=== PATIENT | female | born 1955 | race Hispanic/Latino ===

== ENCOUNTER 2021-09-08 05:14 | Emergency (ER) | payer MEDICARE ==
[2021-09-08] MEDS ORDERED: IPRATROPIUM/ALBUTEROL SULFATE 3 ML AMPUL.NEB IH ONE (06:34)
--- NOTE | 2021-09-08 06:40 | Emergency Department Report ---
ED Shortness of Breath HPI - General Chief Complaint: Dyspnea/Respdistress Stated Complaint: DORIAN Time Seen by Provider: 09/08/21 06:27 Source: patient, EMS Mode of arrival: Stretcher Limitations: No Limitations - History of Present Illness Initial Comments: 66-year-old morbidly obese female with a history of asthma, COPD and smoking who presented with shortness of breath and cough and wheezing that been going on for the last 2 days progressively getting worse. Patient has history of pleural effusion with pleurocentesis in the past. She reported that she is afraid some fluid may need to be drained from her lungs. Patient denies any fever or chil ls. She however continues to smoke about a pack a day. No other modifying or associated factors reported. - Related Data Previous Rx's Medication Instructions Recorded Last Taken Type levoFLOXacin [Levofloxacin] 500 mg PO DAILY 7 Days #7 tab NS 09/08/21 Unknown Rx predniSONE [Deltasone] 40 mg PO QDAY 5 Days #10 tab NS 09/08/21 Unknown Rx Allergies Allergy/AdvReac Type Severity Reaction Status Date / Time ketorolac [From Toradol] Allergy Anaphylaxis Verified 09/08/21 05:43 morphine Allergy Hives Verified 09/08/21 05:43 ED Review of Systems ROS: Stated complaint: DORIAN Other details as noted in HPI Comment: All other systems reviewed and negative Respiratory: cough, shortness of breath, SOB at rest, wheezing Cardiovascular: denies: chest pain, palpitations, syncope ED Past Medical Hx - Past Medical History Previous Medical History?: Yes Hx Asthma: Yes Hx COPD: Yes - Social History Smoking Status: Current Every Day Smoker Substance Use Type: None - Medications Home Medications: Home Medications Medication Instructions Recorded Confirmed Last Taken Type levoFLOXacin [Levofloxacin] 500 mg PO DAILY 7 Days #7 tab NS 09/08/21 Unknown Rx predniSONE [Deltasone] 40 mg PO QDAY 5 Days #10 tab NS 09/08/21 Unknown Rx ED Physical Exam - General Limitations: No Limitations General appearance: alert, in distress (Due to shortness of breath), obese - Head Head exam: Present: normal inspection - Eye Eye exam: Present: normal appearance - ENT ENT exam: Present: normal exam, normal orophraynx, TM's normal bilaterally - Neck Neck exam: Present: normal inspection - Respiratory Respiratory exam: Present: wheezes (Expiratory wheezing bilaterally and diffuse) - Cardiovascular Cardiovascular Exam: Present: regular rate, normal rhythm, normal heart sounds - GI/Abdominal GI/Abdominal exam: Present: soft, normal bowel sounds. Absent: tenderness - Extremities Exam Extremities exam: Present: normal inspection - Back Exam Back exam: Absent: tenderness - Neurological Exam Neurological exam: Present: alert, oriented X3 - Psychiatric Psychiatric exam: Present: normal affect, normal mood - Skin Skin exam: Present: warm, normal color ED Course Vital Signs 09/08/21 09/08/21 09/08/21 05:44 07:36 07:40 Temperature 97.8 F Pulse Rate 110 H 98 H Respiratory 24 24 24 Rate Blood Pressure 142/78 131/81 [Left] O2 Sat by Pulse 100 100 100 Oximetry - Reevaluation(s) Reevaluation #1: 09/08/21 06:41 Here with shortness of breath with productive cough and wheezing for the last 2 days progressively getting worse--initial presenting oxygen was low 80s and patient was started on high flow nonrebreather with improvement to 93 to 94% saturation--this is likely COPD exacerbation so we will go ahead and give DuoNeb and check CT scan of the chest considering that this patient has history of pleurisy with pleurocentesis for better imaging--also ordered CBC, CMP, TSH for any infectious process or electrolyte abnormality. 09/08/21 06:44 We also gave Levaquin 500 IV piggyback Reevaluation #2: 09/08/21 11:14 Patient reported feeling much better on my reevaluation and ready to go home--she plans to continue using oxygen at home I am also going to had Levaquin and prednisone short because to continue to help her symptoms. She will be scheduled for close follow-up with her primary doctor and warning to return to emergency room if symptoms worsen. ED Medical Decision Making - Lab Data Result diagrams: 09/08/21 06:46 09/08/21 06:46 Critical care attestation.: If time is entered above; I have spent that time in minutes in the direct care of this critically ill patient, excluding procedure time. ED Disposition Clinical Impression: Shortness of breath, COPD with exacerbation Disposition: 01 HOME / SELF CARE / HOMELESS Is pt being admited?: No Does the pt Need Aspirin: No Condition: Stable Instructions: Chronic Obstructive Pulmonary Disease Exacerbation, [id number], Shortness of Breath, Adult, [id number], Chronic Obstructive Pulmonary Disease (ED) Additional Instructions: Cut back on your smoking to help your symptoms Take and complete your antibiotics and steroid as prescribed to help your symptoms Call and schedule follow-up with your primary doctor in the next 3 to 5 days for progress Please do not hesitate to call or return to emergency if your symptoms worsen Prescriptions: predniSONE [Deltasone] 40 mg PO QDAY 5 Days #10 tab NS levoFLOXacin [Levofloxacin] 500 mg PO DAILY 7 Days #7 tab NS Referrals: PRIMARY CARE, [Primary Care Provider] - 3-5 Days Time of Disposition: 11:18
[2021-09-08 07:15] LABS: Basophils # (Auto) 0.1 K/mm3 (0.0-0.1); Basophils % (Auto) 1.4 % (0.0-1.8); Eosinophils # (Auto) 0.9 K/mm3 (0.0-0.4); Eosinophils % (Auto) 8.6 % (0.0-4.3); Hematocrit 47.7 % (30.3-42.9); Hemoglobin 15.4 gm/dl (10.1-14.3); Lymphocytes # (Auto) 2.1 K/mm3 (1.2-5.4); Lymphocytes % (Auto) 20.6 % (13.4-35.0); Mean Corpuscular HGB Conc 32 % (30-34); Mean Corpuscular Volume 92 fl (79-97); Monocytes # (Auto) 0.6 K/mm3 (0.0-0.8); Monocytes % (Auto) 6.2 % (0.0-7.3); Platelet Count 370 K/mm3 (140-440); Red Blood Count 5.19 M/mm3 (3.65-5.03); Red Cell Distribution Width 13.7 % (13.2-15.2)
[2021-09-08 07:28] LABS: Alanine Aminotransferase 11 units/L (7-56); Albumin 4.4 g/dL (3.9-5); Blood Urea Nitrogen 13 mg/dL (7-17); Calcium 9.8 mg/dL (8.4-10.2); Hemolysis Index 9
[2021-09-08 07:33] LABS: BUN/Creatinine Ratio 26
--- NOTE | 2021-09-08 07:46 | Cat Scan Report ---
CT CHEST WITHOUT CONTRAST INDICATION / CLINICAL INFORMATION: sob with emphysema and h/o pleurocentesis. TECHNIQUE: Axial CT images were obtained through the chest without contrast. All CT scans at this [facility] ation are performed using CT dose reduction for ALARA by means of automated exposure control. COMPARISON: None available. FINDINGS: CHEST LOWER NECK: Soft tissues and musculature of the lower neck demonstrate no significant abnormality. Th e thyroid demonstrates no significant abnormality. THORACIC AORTA: No significant abnormality. PULMONARY ARTERY:No significant abnormality. HEART: No significant abnormality. CORONARY ARTERY CALCIFICATION: Present -- Severe. MEDIASTINUM / JACK: Small hiatal hernia within the lower chest. ESOPHAGUS: No significant abnormality. LYMPH NODES: No adenopathy demonstrated within the axilla, jack, or mediastinum. LUNGS: Scattered foci of groundglass attenuation. Some regions of minimally thickened septa. No focal consolidation. Calcified granuloma left lower lobe right lower lobe. PLEURA: No pleural effusion. No pneumothorax. THORACIC SOFT TISSUES: No significant abnormality of the chest wall or upper thoracic musculature. OSSEOUS STRUCTURES: No significant abnormality of included osseous structures. UPPER ABDOMEN: Prior gastric surgery. Upper pole cyst left kidney. Possible fat necrosis midline uppe r omentum. This finding partially imaged. Colonic diverticulosis. ADDITIONAL CHEST FINDINGS: None. IMPRESSION: 1. Minimal scattered peripheral foci of groundglass attenuation within the lungs. Reflect infectious or inflammatory process. 2. Minimal emphysema. 3. Other findings as detailed. Signer Name: Filemon Martinez II, MD Signed: 09/08/2021 7:43 AM Workstation Name: [id number]
[2021-09-08 07:47] LABS: INR 0.9 (0.87-1.13)
[2021-09-08 07:48] LABS: Partial Thromboplastin Time 29.6 Sec. (24.2-36.6)
[2021-09-08 11:20] VITALS: BP 138/75
== END 2021-09-08 11:29 | disposition home or self-care (01) ==
LOC: ED 05:14
DX: J44.1 Chronic obstructive pulmonary disease with (acute) exacerbation (principal); F17.200 Nicotine dependence, unspecified, uncomplicated; Z88.5 Allergy status to narcotic agent; R79.1 Abnormal coagulation profile; Z88.8 Allergy status to other drugs, medicaments and biological substances; Z79.899 Other long term (current) drug therapy
CPT/HCPCS: 36415; 71250; 80053; 84443; 85025; 85610; 85730; 94640; 96365; 99284; J1956

== ENCOUNTER 2021-12-04 07:39 | Inpatient (IN) | payer MEDICARE ==
[2021-12-04] MEDS ORDERED: methylPREDNISolone Sod Succinate 125 MG/2 ML INJ IV ONE (07:52)
[2021-12-04] MEDS ORDERED: ALBUTEROL 2.5 MG/3 ML NEBU IH ONE (07:52)
--- NOTE | 2021-12-04 08:03 | Emergency Department Report ---
HPI - General Chief Complaint: Dyspnea/Respdistress Time Seen by Provider: 12/04/21 07:51 - HPI HPI: 66-year-old morbidly obese female with history of chronic tobacco abuse, currently documented per her last visit to the emergency department on September 2021 as being on 3 L of oxygen at home, brought in by EMS for respiratory distress. Patient reports several days of intermittent dry and phlegm productive cough as well as chest tightness wheezing or shortness of breath. EMS personnel report that she received 1 albuterol treatment prior to arrival. Patient denies any chest pain, pain or swelling to her legs, dizziness, fevers or chills. Pain 0 out of 10. ED Past Medical Hx - Past Medical History Previous Medical History?: Yes Hx Asthma: Yes Hx COPD: Yes - Social History Smoking Status: Current Every Day Smoker Substance Use Type: None - Medications Home Medications: Home Medications Medication Instructions Recorded Confirmed Last Taken Type levoFLOXacin [Levofloxacin] 500 mg PO DAILY 7 Days #7 tab NS 09/08/21 Unknown Rx predniSONE [Deltasone] 40 mg PO QDAY 5 Days #10 tab NS 09/08/21 Unknown Rx ED Review of Systems ROS: Stated complaint: DORIAN Other details as noted in HPI Comment: All other systems reviewed and negative Respiratory: cough, shortness of breath, SOB with exertion, wheezing Cardiovascular: dyspnea on exertion, orthopnea. denies: chest pain, palpitations, edema, syncope, paroxysmal nocturnal dyspnea, other Endocrine: no symptoms reported Physical Exam - Physical Exam Vital Signs: Vital Signs 12/04/21 07:46 Temperature 98.1 F Pulse Rate 130 H Respiratory 26 H Rate Blood Pressure 129/83 [Left] O2 Sat by Pulse 98 Oximetry General: Gen: Obese felt female, visibly dyspneic, unable to speak in sentences, moderate respiratory distress, audibly wheezing, no drooling no stridor, no accessory muscle usage HEENT: Normocephalic atraumatic pupils equally round and reactive to light extraocular muscles intact sclera anicteric Neck: Full range of motion, no midline spinal tenderness palpation, no JVD, no carotid bruits, no nuchal rigidity CVS: S1-S2 regular rate and rhythm with no gallops rubs or murmurs, chest wall nontender Pulmonary: Diffuse end expiratory wheezes in all lung mak Abdomen: Soft nondistended nontender no guarding or rebound tenderness, no palpable deformities or step-offs, normal active bowel sounds, no hepatosplenomegaly, no pulsatile masses : Deferred Extremities: No cyanosis no clubbing no edema, intact distal peripheral pulses, Integumentary: Skin normal, no petechia no purpura no abscess no lacerations no evidence of trauma no evidence of infection Neuro: Patient is awake alert and oriented to person place time situation, mentating well, cranial nerves II through XII intact, no focal neurodeficits, sensation grossly tact, unable to test gait at this time Psych: Calm cooperative, mood affect normal ED Course Vital Signs 12/04/21 07:46 Temperature 98.1 F Pulse Rate 130 H Respiratory 26 H Rate Blood Pressure 129/83 [Left] O2 Sat by Pulse 98 Oximetry ED Medical Decision Making - Lab Data Result diagrams: 12/04/21 08:09 12/04/21 08:09 - EKG Data -: EKG Interpreted by Or EKG shows normal: sinus rhythm Rate: tachycardia - EKG Data Interpretation: no acute changes - Radiology Data Radiology results: report reviewed - Medical Decision Making 66-year-old female presents for evaluation of COPD exacerbation, hypoxemia, and acute on chronic hypoxic respiratory failure. Labs and diagnostic imaging results reviewed. Pt placed on bipap secondary to demonstrating little to no improvement while being placed on 2 L of supplemental oxygen via nasal cannula. Case reviewed with , hospitalist. Per her verbal report, patient will be admitted under Dr. Dumont. Critical care attestation.: If time is entered above; I have spent that time in minutes in the direct care of this critically ill patient, excluding procedure time. ED Disposition Clinical Impression: Respiratory failure with hypoxia Disposition: ADMITTED INPATIENT Is pt being admited?: Yes Does the pt Need Aspirin: No Condition: Stable
--- NOTE | 2021-12-04 08:12 | XRay Report ---
CHEST 1 VIEW 12/04/2021 8:00 AM INDICATION / CLINICAL INFORMATION: copd, cough, hypoxia. COMPARISON: CT chest dated 09/08/2021 FINDINGS: SUPPORT DEVICES: None. HEART / MEDIASTINUM: No significant abnormality. LUNGS / PLEURA: No significant pulmonary or pleural abnormality. No pneumothorax. ADDITIONAL FINDINGS: No significant additional findings. IMPRESSION: 1. No acute findings. Signer Name: Avery Machado Jr, MD Signed: 12/04/2021 8:07 AM Workstation Name: [id number]
[2021-12-04 08:47] LABS: ABG HCO3 28.2 mmol/L (20.0-26.0); ABG Methemoglobin 0.5 % (0.0-1.5); ABG Oxygen Saturation 95.8 % (95.0-99.0); ABG PCO2 67.2 mm Hg; ABG PH 7.241 pH Units (7.350-7.450); ABG PO2 90.2 mm Hg (80.0-90.0)
[2021-12-04 09:21] LABS: Basophils # (Auto) 0.2 K/mm3 (0.0-0.1); Basophils % (Auto) 1.2 % (0.0-1.8); Eosinophils # (Auto) 0.3 K/mm3 (0.0-0.4); Hematocrit 47.4 % (30.3-42.9); Hemoglobin 15.1 gm/dl (10.1-14.3); Lymphocytes # (Auto) 1.2 K/mm3 (1.2-5.4); Lymphocytes % (Auto) 8.5 % (13.4-35.0); Mean Corpuscular HGB Conc 32 % (30-34); Mean Corpuscular Volume 94 fl (79-97); Monocytes # (Auto) 0.8 K/mm3 (0.0-0.8); Monocytes % (Auto) 5.2 % (0.0-7.3); Platelet Count 345 K/mm3 (140-440); Red Blood Count 5.07 M/mm3 (3.65-5.03); Red Cell Distribution Width 13.5 % (13.2-15.2)
[2021-12-04 09:43] LABS: Blood Urea Nitrogen 13 mg/dL (7-17); Calcium 9.3 mg/dL (8.4-10.2); Hemolysis Index 2
[2021-12-04 10:17] LABS: BUN/Creatinine Ratio 26
--- NOTE | 2021-12-04 10:50 | History and Physical Report ---
History of Present Illness Chief complaint: I cannot breathe History of present illness: 66 YO Female with COPD, Mild Intermittent Asthma, Nicotine Dependence, Obesity Hypoventilation Syndrome, Chronic Respiratory Failure on Home Oxygen at 3L [place] presents to ED for evaluation. Patient states she has experienced shortness of breath over the past 3 days. Patient acknowledges increased productive cough with yellowish sputum. Patient acknowledges increased bronchodilator and nebulizer therapy use without relief of the aforementioned symptoms which is a failure of outpatient therapy. EMS was notified and upon arrival the patient was found to be in distress and subsequently transported to [facility] for further care and evaluation of the aforementioned symptoms. The patient was seen and evaluated in the emergency department. All lab and imaging studies reviewed. Patient found to have a pulse oximetry of 84% on supplemental oxygen which is consistent with acute hypoxemic respiratory failure. Patient was also found to be retracting, unable to speak in complete sentences, and using accessory muscles to breathe. Patient placed on noninvasive positive pressure ventilation in the emergency department with mild improvement in symptoms. Patient uses head gestures to deny fever, chills, chest pain, palpitation, skin rash, recent contact, unilateral leg swelling, calf pain, prolonged travel, individual/family history of DVT/PE/bleeding/blood clotting disorders, or known exposure to COVID- 19. No prior admission for review. All medication listed at time of admission has been reconciled. Advanced care planning conducted in ED. Past History Past Medical History: COPD, other (See HPI) Past Surgical History: No surgical history, Other (Reviewed) Social history: single, smoking. denies: alcohol abuse, prescription drug abuse Family history: hypertension Medications and Allergies Allergies Allergy/AdvReac Type Severity Reaction Status Date / Time ketorolac [From Toradol] Allergy Anaphylaxis Verified 12/04/21 07:50 morphine Allergy Hives Verified 12/04/21 07:50 Home Medications Medication Instructions Recorded Confirmed Last Taken Type levoFLOXacin [Levofloxacin] 500 mg PO DAILY 7 Days #7 tab NS 09/08/21 Unknown Rx predniSONE [Deltasone] 40 mg PO QDAY 5 Days #10 tab NS 09/08/21 Unknown Rx Active Meds: Active Medications Magnesium Sulfate 1 gm/ Sodium (Chloride) 52 mls @ 52 mls/hr IV ONCE ONE Stop: 12/04/21 11:59 Review of Systems Constitutional: no weight loss, no weight gain, no fever, no chills Ears, nose, mouth and throat: no ear pain, no ear discharge, no tinnitis, no decreased hearing Breasts: no change in shape, no swelling, no mass Cardiovascular: no orthopnea, no rapid/irregular heart beat, no syncope Respiratory: cough, cough with sputum, shortness of breath, congestion, wheezing Gastrointestinal: no abdominal pain, no nausea, no vomiting, no diarrhea, no constipation, no change in bowel habits Genitourinary Female: no pelvic pain, no flank pain, no dysuria, no urinary frequency, no urgency, no stress incontinence Rectal: no pain, no incontinence, no bleeding Musculoskeletal: no neck stiffness, no neck pain, no arm numbness/tingling, no low back pain, no shooting leg pain Integumentary: no rash, no pruritis, no redness, no sores, no wounds, no jaundice, no boils Neurological: no head injury, no paralysis, no parathesias, no tingling, no syncope Psychiatric: no anxiety, no change in sleep habits, no hypersomnia, no change in libido, no suicidal ideation Endocrine: no cold intolerance, no polyphagia, no flushing Hematologic/Lymphatic: no easy bruising Allergic/Immunologic: no allergic rhinitis, no wheezing Exam - Constitutional Vitals: Temp Pulse Resp BP Pulse Ox 98.1 F 114 H 18 132/96 98 12/04/21 07:46 12/04/21 09:20 12/04/21 09:20 12/04/21 09:20 12/04/21 09:20 General appearance: Present: mild distress, obese - Respiratory Respiratory effort: labored, accessory muscle use, stridor Respiratory: bilateral: diminished, rhonchi - Cardiovascular Rhythm: other (Tachycardia) - Extremities Extremities: pulses symmetrical, No edema Peripheral Pulses: within normal limits - Abdominal General gastrointestinal: Present: soft, non-tender, non-distended, normal bowel sounds Female genitourinary: Present: normal - Integumentary Integumentary: Present: clear, dry - Musculoskeletal Musculoskeletal: generalized weakness - Psychiatric Psychiatric: cooperative - Neurologic Neurologic: CNII-XII intact Results - Labs CBC & Chem 7: 12/04/21 08:09 12/04/21 08:09 Labs: Abnormal lab results 12/04/21 12/04/21 12/04/21 Range/Units 08:09 08:09 08:20 WBC 14.8 H (4.5-11.0) K/mm3 RBC 5.07 H (3.65-5.03) M/mm3 Hgb 15.1 H (10.1-14.3) gm/dl Hct 47.4 H (30.3-42.9) % Lymph % (Auto) 8.5 L (13.4-35.0) % Baso # (Auto) 0.2 H (0.0-0.1) K/mm3 Seg Neutrophils % 83.1 H (40.0-70.0) % Seg Neutrophils # 12.3 H (1.8-7.7) K/mm3 ABG pH 7.241 L (7.350-7.450) pH Units ABG pO2 90.2 H (80.0-90.0) mm Hg ABG HCO3 28.2 H (20.0-26.0) mmol/L Oxyhemoglobin 94.1 L (95.0-99.0) % Carbon Dioxide 31 H (22-30) mmol/L Creatinine 0.5 L (0.6-1.2) mg/dL Glucose 217 H (65-100) mg/dL Assessment and Plan - Patient Problems (1) Acute hypoxemic respiratory failure Current Visit: Yes Status: Acute Plan to address problem: Chest x-ray, supplemental oxygen, pulse oximetry, nebulizer therapy, pulmonary toilet, IV steroid therapy, noninvasive positive pressure ventilation as clinically indicated. (2) COPD exacerbation Current Visit: Yes Status: Acute Plan to address problem: Chest x-ray, supplemental oxygen, pulse oximetry, IV steroid therapy, supportive care. (3) Obesity hypoventilation syndrome Current Visit: Yes Status: Acute Plan to address problem: Balanced diet, increase physical activity discharge, outpatient pulmonary follow-up for sleep study, (4) Nicotine dependence Current Visit: Yes Status: Acute Qualifiers: Nicotine product type: cigarettes Substance use status: in withdrawal Qualified Code(s): F17.213 - Nicotine dependence, cigarettes, with withdrawal Plan to address problem: Smoking cessation counseling, supportive care, behavior change counseling, +15 minutes. (5) DVT prophylaxis Current Visit: Yes Status: Acute Plan to address problem: SCD to bilateral lower extremities while in bed (6) Advance care planning Current Visit: Yes Status: Acute Plan to address problem: Disease education data, care plan discussed, diagnoses discussed, prognosis discussed, patient is full code, patient knowledges understanding and agreement care plan, +30 minutes. (7) Preventative health care Current Visit: Yes Status: Acute Plan to address problem: Patient counseled regarding weight reduction, balanced diet, increase physical activity discharge, outpatient pulmonary follow-up procedure, outpatient bariatric evaluation, outpatient follow-up with primary care physician for all age and risk factor appropriate screening test. +30 minutes.
[2021-12-04] MEDS ORDERED: oxyCODONE /ACETAMINOPHEN 5-325MG TAB PO PRN (10:51)
[2021-12-04] MEDS ORDERED: HYDROmorphone 0.5 MG/0.5 ML INJ IV PRN (10:51)
[2021-12-04] MEDS ORDERED: ONDANSETRON 4 MG/2 ML INJ IV PRN (10:51)
[2021-12-04] MEDS ORDERED: ACETAMINOPHEN 325 MG TAB PO PRN (10:51)
[2021-12-04] MEDS ORDERED: MAGNESIUM SULFATE 1 GM in SODIUM CHLORIDE 0.9% 50 ML IV ONE (11:00)
[2021-12-04] MEDS: methylPREDNISolone Sod Succinate 40 MG/1 ML INJ IV SCH ×2 (16:00→21:16)
[2021-12-04] MEDS: FAMOTIDINE 10 MG TAB PO SCH (21:16)
[2021-12-05] MEDS ORDERED: MAGNESIUM HYDROXIDE (MOM) ORAL LIQD UDC PO PRN ×2 (01:40→01:49)
[2021-12-05] MEDS: methylPREDNISolone Sod Succinate 40 MG/1 ML INJ IV SCH ×3 (05:30→22:42)
[2021-12-05 07:14] LABS: Blood Urea Nitrogen 13 mg/dL (7-17); Calcium 9.2 mg/dL (8.4-10.2); Hemolysis Index 2
[2021-12-05 07:17] LABS: BUN/Creatinine Ratio 33
[2021-12-05] MEDS: FAMOTIDINE 10 MG TAB PO SCH ×2 (09:43→22:42)
--- NOTE | 2021-12-05 10:20 | Progress Note ---
Assessment and Plan Assessment and plan: 66 YO Female with COPD, Mild Intermittent Asthma, Nicotine Dependence, Obesity Hypoventilation Syndrome, Chronic Respiratory Failure on Home Oxygen at 3L NC presents to ED for evaluation of shortness of breath over the past 3 days. Patient acknowledged increased productive cough with yellowish sputum. Patient acknowledges increased bronchodilator and nebulizer therapy use without relief of the aforementioned symptoms which is a failure of outpatient therapy. EMS was notified and upon arrival the patient was found to be in distress and subsequently transported to [facility] for further care and evaluation of the aforementioned symptoms. The patient was seen and evaluated in the emergency department. All lab and imaging studies reviewed. Patient found to have a pulse oximetry of 84% on supplemental oxygen which is consistent with acute hypoxemic respiratory failure. Acute on chronic hypoxic respiratory failure. Patient with home oxygen of 4 L Acute COPD exacerbation Obesity hypoventilation syndrome Nicotine dependence 12/05/2021. Patient required 15 L Venturi mask last night and then later transitioned to BiPAP overnight. Today, patient with 10 L O2. Continue O2 supplementation and wean as tolerated. BiPAP as clinically indicated. Continue IV steroids of Solu-Medrol 40 mg every 8 hours, albuterol nebulizer treatments. History Interval history: No new issues overnight Hospitalist Physical - Constitutional Vitals: Temp Pulse Resp BP Pulse Ox 97.6 F 101 H 22 140/66 95 12/05/21 01:41 12/05/21 01:41 12/05/21 01:41 12/05/21 01:41 12/05/21 08:21 General appearance: Present: mild distress, obese - EENT Eyes: Present: PERRL, EOM intact ENT: hearing intact, clear oral mucosa, dentition normal - Neck Neck: Present: supple, normal ROM - Respiratory Respiratory effort: normal Respiratory: bilateral: CTA - Cardiovascular Rhythm: regular Heart Sounds: Present: S1 & S2. Absent: gallop, rub - Extremities Extremities: no ischemia, No edema, Full ROM - Abdominal General gastrointestinal: soft, non-tender, non-distended, normal bowel sounds - Integumentary Integumentary: Present: clear, warm, dry - Neurologic Neurologic: CNII-XII intact, moves all extremities Results - Labs CBC & Chem 7: 12/04/21 08:09 12/05/21 06:05 Labs: Laboratory Last Values WBC 14.8 K/mm3 (4.5-11.0) H 12/04/21 08:09 RBC 5.07 M/mm3 (3.65-5.03) H 12/04/21 08:09 Hgb 15.1 gm/dl (10.1-14.3) H 12/04/21 08:09 Hct 47.4 % (30.3-42.9) H 12/04/21 08:09 MCV 94 fl (79-97) 12/04/21 08:09 MCH 30 pg (28-32) 12/04/21 08:09 MCHC 32 % (30-34) 12/04/21 08:09 RDW 13.5 % (13.2-15.2) 12/04/21 08:09 Plt Count 345 K/mm3 (140-440) 12/04/21 08:09 Lymph % (Auto) 8.5 % (13.4-35.0) L 12/04/21 08:09 [place] % (Auto) 5.2 % (0.0-7.3) 12/04/21 08:09 Eos % (Auto) 2.0 % (0.0-4.3) 12/04/21 08:09 Baso % (Auto) 1.2 % (0.0-1.8) 12/04/21 08:09 Lymph # (Auto) 1.2 K/mm3 (1.2-5.4) 12/04/21 08:09 [place] # (Auto) 0.8 K/mm3 (0.0-0.8) 12/04/21 08:09 Eos # (Auto) 0.3 K/mm3 (0.0-0.4) 12/04/21 08:09 Baso # (Auto) 0.2 K/mm3 (0.0-0.1) H 12/04/21 08:09 Seg Neutrophils % 83.1 % (40.0-70.0) H 12/04/21 08:09 Seg Neutrophils # 12.3 K/mm3 (1.8-7.7) H 12/04/21 08:09 ABG pH 7.241 pH Units (7.350-7.450) L 12/04/21 08:20 ABG pCO2 67.2 mm Hg 12/04/21 08:20 ABG pO2 90.2 mm Hg (80.0-90.0) H 12/04/21 08:20 ABG HCO3 28.2 mmol/L (20.0-26.0) H 12/04/21 08:20 ABG O2 Saturation 95.8 % (95.0-99.0) 12/04/21 08:20 ABG O2 Content 20.1 (0.0-44) 12/04/21 08:20 ABG Base Excess -1.0 mmol/L (-2.0-3.0) 12/04/21 08:20 ABG Hemoglobin 15.2 gm/dl (12.0-16.0) 12/04/21 08:20 ABG Carboxyhemoglobin 1.3 % (0.0-5.0) 12/04/21 08:20 ABG Methemoglobin 0.5 % (0.0-1.5) 12/04/21 08:20 Oxyhemoglobin 94.1 % (95.0-99.0) L 12/04/21 08:20 FiO2 40 % 12/04/21 08:20 Sodium 142 mmol/L (137-145) 12/05/21 06:05 Potassium 4.9 mmol/L (3.6-5.0) 12/05/21 06:05 Chloride 101.5 mmol/L (98-107) 12/05/21 06:05 Carbon Dioxide 33 mmol/L (22-30) H 12/05/21 06:05 Anion Gap 12 mmol/L 12/05/21 06:05 BUN 13 mg/dL (7-17) 12/05/21 06:05 Creatinine 0.4 mg/dL (0.6-1.2) L 12/05/21 06:05 Estimated GFR > 60 ml/min 12/05/21 06:05 BUN/Creatinine Ratio 33 % 12/05/21 06:05 Glucose 221 mg/dL (65-100) H 12/05/21 06:05 POC Glucose 243 mg/dL (70-105) H 12/04/21 15:41 Calcium 9.2 mg/dL (8.4-10.2) 12/05/21 06:05 NT-Pro-B Natriuret Pep 85.84 pg/mL (0-900) 12/04/21 08:09 Crockett/IV: Voiding Method Toilet Active Medications - Current Medications Current Medications: Generic Name Dose Route Start Last Admin Trade Name Freq PRN Reason Stop Dose Admin Acetaminophen 650 mg 12/04/21 10:51 Acetaminophen 325 Mg Tab PO Q4H PRN Pain MILD(1-3)/Fever >100.5/BARRETT Albuterol 2.5 mg 12/04/21 10:51 Albuterol 2.5 Mg/3 Ml Nebu IH Q4HRT PRN Shortness Of Breath Famotidine 10 mg 12/04/21 22:00 12/05/21 09:43 Famotidine 10 Mg Tab PO 10 mg BID MEHRDAD Administration Hydromorphone HCl 0.5 mg 12/04/21 10:51 Hydromorphone 0.5 Mg/0.5 Ml Inj IV Q23H PRN Pain , Severe (7-10) Magnesium Hydroxide 30 ml 12/05/21 01:49 12/05/21 02:15 Magnesium Hydroxide (Mom) Oral Liqd Udc PO 30 ml Q4H PRN Administration Indigestion Methylprednisolone Sodium Succinate 40 mg 12/04/21 14:00 12/05/21 05:30 Methylprednisolone Sod Succinate 40 Mg/1 Ml Inj IV 40 mg Q8HR MEHRDAD Administration Ondansetron HCl 4 mg 12/04/21 10:51 12/04/21 22:37 Ondansetron 4 Mg/2 Ml Inj IV 4 mg Q8H PRN Administration Nausea And Vomiting Oxycodone/Acetaminophen 1 tab 12/04/21 10:51 Oxycodone /Acetaminophen 5-325mg Tab PO Q16H PRN Pain, Moderate (4-6) Sodium Chloride 10 ml 12/04/21 22:00 12/05/21 09:43 Sodium Chloride 0.9% 10 Ml Flush Syringe IV 10 ml BID MEHRDAD Administration Sodium Chloride 10 ml 12/04/21 10:51 Sodium Chloride 0.9% 10 Ml Flush Syringe IV PRN PRN LINE FLUSH
[2021-12-05] MEDS: ALBUTEROL 2.5 MG/3 ML NEBU IH PRN (14:56)
[2021-12-06] MEDS ORDERED: QUEtiapine 100 MG TAB PO SCH ×2 (02:00→02:40)
[2021-12-06] MEDS: rOPINIRole 1 MG TAB PO SCH ×2 (02:03→22:51)
[2021-12-06] MEDS: DOXEPIN 25 MG CAP PO PRN ×2 (02:36→22:56)
[2021-12-06] MEDS: CYCLOBENZAPRINE 10 MG TAB PO SCH ×3 (02:36→22:51)
[2021-12-06] MEDS: CITALOPRAM 20 MG TAB PO SCH (02:39)
[2021-12-06] MEDS: methylPREDNISolone Sod Succinate 40 MG/1 ML INJ IV SCH ×3 (05:49→22:51)
[2021-12-06] MEDS: ALBUTEROL 2.5 MG/3 ML NEBU IH PRN ×3 (06:10→20:39)
--- NOTE | 2021-12-06 08:58 | Progress Note ---
Assessment and Plan Assessment and plan: 66 YO Female with COPD, Mild Intermittent Asthma, Nicotine Dependence, Obesity Hypoventilation Syndrome, Chronic Respiratory Failure on Home Oxygen at 3L [place] presents to ED for evaluation of shortness of breath over the past 3 days. Patient acknowledged increased productive cough with yellowish sputum. Patient acknowledges increased bronchodilator and nebulizer therapy use without relief of the aforementioned symptoms which is a failure of outpatient therapy. EMS was notified and upon arrival the patient was found to be in distress and subsequently transported to [facility] for further care and evaluation of the aforementioned symptoms. The patient was seen and evaluated in the emergency department. All lab and imaging studies reviewed. Patient found to have a pulse oximetry of 84% on supplemental oxygen which is consistent with acute hypoxemic respiratory failure. Acute on chronic hypoxic respiratory failure. Patient with home oxygen of 4 L Acute COPD exacerbation Obesity hypoventilation syndrome Nicotine dependence 12/05/2021. Patient required 15 L Venturi mask last night and then later transitioned to BiPAP overnight. Today, patient with 10 L O2. Continue O2 supplementation and wean as tolerated. BiPAP as clinically indicated. Continue IV steroids of Solu-Medrol 40 mg every 8 hours, albuterol nebulizer treatments. 12/06/2021. Patient requiring BiPAP with IPAP 10, EPAP 5 and FiO2 50%. Continue BiPAP as clinically indicated. Wean O2 supplementation. Patient is on baseline home O2 of 4 L. Continue IV steroids, bronchodilators/nebulizers. Check echocardiogram to rule out pulmonary hypertension History Interval history: No new issues overnight Hospitalist Physical - Constitutional Vitals: Temp Pulse Resp BP Pulse Ox 98.2 F 95 H 18 150/79 93 12/06/21 05:47 12/06/21 06:12 12/06/21 06:12 12/06/21 05:47 12/06/21 05:47 General appearance: Present: mild distress, obese - EENT Eyes: Present: PERRL, EOM intact ENT: hearing intact, clear oral mucosa, dentition normal - Neck Neck: Present: supple, normal ROM - Respiratory Respiratory effort: normal Respiratory: bilateral: CTA - Cardiovascular Rhythm: regular Heart Sounds: Present: S1 & S2. Absent: gallop, rub - Extremities Extremities: no ischemia, No edema, Full ROM - Abdominal General gastrointestinal: soft, non-tender, non-distended, normal bowel sounds - Integumentary Integumentary: Present: clear, warm, dry - Neurologic Neurologic: CNII-XII intact, moves all extremities Results - Labs CBC & Chem 7: 12/04/21 08:09 12/05/21 06:05 Labs: Laboratory Last Values WBC 14.8 K/mm3 (4.5-11.0) H 12/04/21 08:09 RBC 5.07 M/mm3 (3.65-5.03) H 12/04/21 08:09 Hgb 15.1 gm/dl (10.1-14.3) H 12/04/21 08:09 Hct 47.4 % (30.3-42.9) H 12/04/21 08:09 MCV 94 fl (79-97) 12/04/21 08:09 MCH 30 pg (28-32) 12/04/21 08:09 MCHC 32 % (30-34) 12/04/21 08:09 RDW 13.5 % (13.2-15.2) 12/04/21 08:09 Plt Count 345 K/mm3 (140-440) 12/04/21 08:09 Lymph % (Auto) 8.5 % (13.4-35.0) L 12/04/21 08:09 [place] % (Auto) 5.2 % (0.0-7.3) 12/04/21 08:09 Eos % (Auto) 2.0 % (0.0-4.3) 12/04/21 08:09 Baso % (Auto) 1.2 % (0.0-1.8) 12/04/21 08:09 Lymph # (Auto) 1.2 K/mm3 (1.2-5.4) 12/04/21 08:09 [place] # (Auto) 0.8 K/mm3 (0.0-0.8) 12/04/21 08:09 Eos # (Auto) 0.3 K/mm3 (0.0-0.4) 12/04/21 08:09 Baso # (Auto) 0.2 K/mm3 (0.0-0.1) H 12/04/21 08:09 Seg Neutrophils % 83.1 % (40.0-70.0) H 12/04/21 08:09 Seg Neutrophils # 12.3 K/mm3 (1.8-7.7) H 12/04/21 08:09 ABG pH 7.241 pH Units (7.350-7.450) L 12/04/21 08:20 ABG pCO2 67.2 mm Hg 12/04/21 08:20 ABG pO2 90.2 mm Hg (80.0-90.0) H 12/04/21 08:20 ABG HCO3 28.2 mmol/L (20.0-26.0) H 12/04/21 08:20 ABG O2 Saturation 95.8 % (95.0-99.0) 12/04/21 08:20 ABG O2 Content 20.1 (0.0-44) 12/04/21 08:20 ABG Base Excess -1.0 mmol/L (-2.0-3.0) 12/04/21 08:20 ABG Hemoglobin 15.2 gm/dl (12.0-16.0) 12/04/21 08:20 ABG Carboxyhemoglobin 1.3 % (0.0-5.0) 12/04/21 08:20 ABG Methemoglobin 0.5 % (0.0-1.5) 12/04/21 08:20 Oxyhemoglobin 94.1 % (95.0-99.0) L 12/04/21 08:20 FiO2 40 % 12/04/21 08:20 Sodium 142 mmol/L (137-145) 12/05/21 06:05 Potassium 4.9 mmol/L (3.6-5.0) 12/05/21 06:05 Chloride 101.5 mmol/L (98-107) 12/05/21 06:05 Carbon Dioxide 33 mmol/L (22-30) H 12/05/21 06:05 Anion Gap 12 mmol/L 12/05/21 06:05 BUN 13 mg/dL (7-17) 12/05/21 06:05 Creatinine 0.4 mg/dL (0.6-1.2) L 12/05/21 06:05 Estimated GFR > 60 ml/min 12/05/21 06:05 BUN/Creatinine Ratio 33 % 12/05/21 06:05 Glucose 221 mg/dL (65-100) H 12/05/21 06:05 POC Glucose 243 mg/dL (70-105) H 12/04/21 15:41 Calcium 9.2 mg/dL (8.4-10.2) 12/05/21 06:05 NT-Pro-B Natriuret Pep 85.84 pg/mL (0-900) 12/04/21 08:09 Crockett/IV: Voiding Method Toilet Active Medications - Current Medications Current Medications: Generic Name Dose Route Start Last Admin Trade Name Freq PRN Reason Stop Dose Admin Acetaminophen 650 mg 12/04/21 10:51 Acetaminophen 325 Mg Tab PO Q4H PRN Pain MILD(1-3)/Fever >100.5/BARRETT Albuterol 2.5 mg 12/04/21 10:51 12/06/21 06:10 Albuterol 2.5 Mg/3 Ml Nebu IH 2.5 mg Q4HRT PRN Administration Shortness Of Breath Citalopram Hydrobromide 40 mg 12/06/21 01:56 12/06/21 02:39 Citalopram 20 Mg Tab PO Not Given QDAY MEHRDAD Cyclobenzaprine HCl 10 mg 12/06/21 03:00 12/06/21 02:36 Cyclobenzaprine 10 Mg Tab PO 10 mg BID MEHRDAD Administration Doxepin HCl 50 mg 12/06/21 02:11 12/06/21 02:36 Doxepin 25 Mg Cap PO 50 mg QHS PRN Administration Anxiety Famotidine 10 mg 12/04/21 22:00 12/05/21 22:42 Famotidine 10 Mg Tab PO 10 mg BID MEHRDAD Administration Hydromorphone HCl 0.5 mg 12/04/21 10:51 Hydromorphone 0.5 Mg/0.5 Ml Inj IV Q23H PRN Pain , Severe (7-10) Magnesium Hydroxide 30 ml 12/05/21 01:49 12/05/21 02:15 Magnesium Hydroxide (Mom) Oral Liqd Udc PO 30 ml Q4H PRN Administration Indigestion Methylprednisolone Sodium Succinate 40 mg 12/04/21 14:00 12/06/21 05:49 Methylprednisolone Sod Succinate 40 Mg/1 Ml Inj IV 40 mg Q8HR MEHRDAD Administration Ondansetron HCl 4 mg 12/04/21 10:51 12/04/21 22:37 Ondansetron 4 Mg/2 Ml Inj IV 4 mg Q8H PRN Administration Nausea And Vomiting Oxycodone/Acetaminophen 1 tab 12/04/21 10:51 Oxycodone /Acetaminophen 5-325mg Tab PO Q16H PRN Pain, Moderate (4-6) Quetiapine Fumarate 50 mg 12/06/21 02:40 Quetiapine 100 Mg Tab PO QHS MEHRDAD Ropinirole HCl 2 mg 12/06/21 02:00 12/06/21 02:03 Ropinirole 1 Mg Tab PO 2 mg QHS MEHRDAD Administration Sodium Chloride 10 ml 12/04/21 22:00 12/05/21 22:42 Sodium Chloride 0.9% 10 Ml Flush Syringe IV 10 ml BID MEHRDAD Administration Sodium Chloride 10 ml 12/04/21 10:51 Sodium Chloride 0.9% 10 Ml Flush Syringe IV PRN PRN LINE FLUSH
[2021-12-06] MEDS: FAMOTIDINE 10 MG TAB PO SCH ×2 (09:16→22:51)
[2021-12-06] MEDS ORDERED: CITALOPRAM 10 MG TAB PO SCH (10:00)
[2021-12-07] MEDS: methylPREDNISolone Sod Succinate 40 MG/1 ML INJ IV SCH ×2 (06:49→14:43)
[2021-12-07 06:52] LABS: Basophils # (Auto) 0.1 K/mm3 (0.0-0.1); Basophils % (Auto) 0.7 % (0.0-1.8); Eosinophils % (Auto) 0.1 % (0.0-4.3); Hemoglobin 15.5 gm/dl (10.1-14.3); Lymphocytes # (Auto) 0.9 K/mm3 (1.2-5.4); Lymphocytes % (Auto) 8.8 % (13.4-35.0); Mean Corpuscular HGB Conc 34 % (30-34); Mean Corpuscular Volume 91 fl (79-97); Monocytes # (Auto) 0.3 K/mm3 (0.0-0.8); Platelet Count 355 K/mm3 (140-440); Red Blood Count 5.06 M/mm3 (3.65-5.03); Red Cell Distribution Width 13.1 % (13.2-15.2)
[2021-12-07 07:12] LABS: Blood Urea Nitrogen 16 mg/dL (7-17); Calcium 9.5 mg/dL (8.4-10.2); Hemolysis Index 8
[2021-12-07 07:21] LABS: BUN/Creatinine Ratio 40
--- NOTE | 2021-12-07 08:57 | Discharge Summary ---
Providers - Providers Date of Admission: 12/04/21 10:51 Date of discharge: 12/07/21 Attending physician: REBECCA HASKINS Primary care physician: GEAR GENERATOR SET UP OPERATOR Hospitalization Reason for admission: COPD exac Condition: Stable Hospital course: 66 YO Female with COPD, Mild Intermittent Asthma, Nicotine Dependence, Obesity Hypoventilation Syndrome, Chronic Respiratory Failure on Home Oxygen at 4L [place] presents to ED for evaluation of shortness of breath over the past 3 days. Patient acknowledged increased productive cough with yellowish sputum. Patient acknowledges increased bronchodilator and nebulizer therapy use without relief of the aforementioned symptoms which is a failure of outpatient therapy. EMS was notified and upon arrival the patient was found to be in distress and subsequently transported to [facility] for further care and evaluation of the aforementioned symptoms. The patient was seen and evaluated in the emergency department. All lab and imaging studies reviewed. Patient found to have a pulse oximetry of 84% on supplemental oxygen which is consistent with acute hypoxemic respiratory failure. The patient was admitted with diagnosis below: Acute on chronic hypoxic respiratory failure. Acute COPD exacerbation Obesity hypoventilation syndrome Nicotine dependence Hospital course: 12/05/2021. Patient required 15 L Venturi mask last night and then later transitioned to BiPAP overnight. Today, patient with 10 L O2. Continue O2 supplementation and wean as tolerated. BiPAP as clinically indicated. Continue IV steroids of Solu-Medrol 40 mg every 8 hours, albuterol nebulizer treatments. 12/06/2021. Patient requiring BiPAP with IPAP 10, EPAP 5 and FiO2 50%. Continue BiPAP as clinically indicated. Wean O2 supplementation. Patient is on baseline home O2 of 4 L. Continue IV steroids, bronchodilators/nebulizers. Check echocardiogram to rule out pulmonary hypertension 12/07/2021. Patient's oxygen requirement was decreased to 4 L which she was satting in 100% last evening. Patient refused BiPAP and did not want it all night. Patient is back to her baseline respiratory status with 4 L home O2. Patient with no further wheezing. Patient is felt to have received maximal hospital benefit and will be discharged home. Dedicated discharge time 32 minutes Disposition: HOME / SELF CARE / HOMELESS Final Discharge Diagnosis (Prints w/discharge instructions): Acute hypoxic respiratory failure, COPD exacerbation, obesity hypoventilation syndrome, obes ity Core Measure Documentation - Palliative Care Palliative Care/ Comfort Measures: Not Applicable - Core Measures Any of the following diagnoses?: none Exam - Constitutional Vitals: Temp Pulse Resp BP Pulse Ox 97.5 F L 89 20 146/86 96 12/07/21 05:41 12/07/21 05:41 12/07/21 05:41 12/07/21 05:41 12/07/21 05:41 General appearance: Present: no acute distress, well-nourished - EENT Eyes: Present: PERRL ENT: hearing intact, clear oral mucosa - Neck Neck: Present: supple, normal ROM - Respiratory Respiratory effort: normal Respiratory: bilateral: CTA - Cardiovascular Heart Sounds: Present: S1 & S2. Absent: rub, click - Extremities Extremities: pulses symmetrical, No edema Peripheral Pulses: within normal limits - Abdominal General gastrointestinal: Present: soft, non-tender, non-distended, normal bowel sounds Female genitourinary: Present: normal - Integumentary Integumentary: Present: clear, warm, dry - Musculoskeletal Musculoskeletal: gait normal, strength equal bilaterally - Psychiatric Psychiatric: appropriate mood/affect, intact judgment & insight - Neurologic Neurologic: CNII-XII intact, moves all extremities Plan Activity: advance as tolerated Weight Bearing Status: Weight Bear as Tolerated Diet: regular Follow up with: PRIMARY CARE,MD [Primary Care Provider] - 3-5 Days Prescriptions: Ipratropium/Albuter (Nf) [Combivent Inhaler] 2 puff IH QID 30 Days Cyclobenzaprine [Flexeril 10 MG TAB] 10 mg PO BID #30 Gabapentin 300 mg PO TID #90 cap rOPINIRole [Requip] 2 mg PO QHS #30 tablet QUEtiapine [SEROquel] 50 mg PO QHS #30 tablet Doxepin [SINEquan] 50 mg PO QHS PRN #30 capsule PRN Reason: Anxiety
[2021-12-07] MEDS: CITALOPRAM 20 MG TAB PO SCH (09:06)
[2021-12-07] MEDS: FAMOTIDINE 10 MG TAB PO SCH (09:06)
[2021-12-07] MEDS: CYCLOBENZAPRINE 10 MG TAB PO SCH (09:06)
[2021-12-07] MEDS ORDERED: ALPRAZolam 0.25 MG TAB PO PRN (11:57)
[2021-12-07 15:07] VITALS: BP 165/92
--- NOTE | 2021-12-07 18:02 | Electrocardiograph Report ---
[facility] Test Date: 2021-12-04 Test Time: 08:29:15 Pat Name: ENRICO JENNINGS Department: Room: A366 1 Gender: F Telephone Station Repairer: NURSE : 1955 Requested By: ELIZABETH PARKS Order Number: [id number] Reading MD: Kristal Lafleur Measurements Intervals [place] Rate: 115 P: 82 OR: 171 QRS: 94 QRSD: 106 T: 24 QT: 345 QTc: 478 Interpretive Statements Sinus tachycardia Right axis deviation Low voltage, precordial leads Early repolarization ST changes No previous ECG available for comparison Electronically Signed On 12-07-2021 18:02:08 EDT by Kristal Lafleur
== END 2021-12-07 17:36 | disposition home or self-care (01) | DRG 189 ==
LOC: ED 07:39 → 3A 10:51
PROVIDERS: ADMIT Internal Medicine; ATTEND Hospitalist
PROC: 5A09357 Assistance with Respiratory Ventilation, Less than 24 Consecutive Hours, Continuous Positive Airway Pressure (ICD-10-PCS; principal; 2021-12-04)
PROC: 5A09357 Assistance with Respiratory Ventilation, Less than 24 Consecutive Hours, Continuous Positive Airway Pressure (ICD-10-PCS; 2021-12-05)
DX: J96.21 Acute and chronic respiratory failure with hypoxia (principal); J44.1 Chronic obstructive pulmonary disease with (acute) exacerbation; E66.2 Morbid (severe) obesity with alveolar hypoventilation; F17.213 Nicotine dependence, cigarettes, with withdrawal; Z68.41 Body mass index [BMI] 40.0-44.9, adult; F17.200 Nicotine dependence, unspecified, uncomplicated; Z82.49 Family history of ischemic heart disease and other diseases of the circulatory system
CPT/HCPCS: 36415; 71045; 80048; 82803; 82962; 83880; 85025; 93005; 93306; 94640; 94644; 94660; 94760; 99406; G0378; C8929; J2405; J2920; J2930; J3475